=== PATIENT | male | born 1990 | race African-American/Black ===

== ENCOUNTER 2021-10-29 13:03 | Inpatient (IN) | payer SELFPAY ==
[~2021-10-29] VITALS: Ht 180.3 cm; Wt 81.7 kg
[2021-10-29 13:03] VITALS: BP 125/91
--- NOTE | 2021-10-29 13:03 | NUR ---
29 y/o male biba, homeless, pt presents to ed with restless/yelling behavior and aloc. pt was found at store swinging a machete per pd. pt is currently aggressive with spastic movements and confused. alert and awake, but pt is refusing to answer questions at this time. pt currently on 4 point hard restraints for safety to pt and others. pmh: unable to obtain allergy: unable to obtain med: unable to obtain
--- NOTE | 2021-10-29 13:08 | NUR ---
PT BIBA TO BED 06.
[2021-10-29] MEDS ORDERED: NACL 0.9% 1,000 ML IV ONE ×2 (13:25→15:50)
[2021-10-29] MEDS ORDERED: LORazepam 2 MG/ML VIAL IM STA (13:52)
[2021-10-29] MEDS ORDERED: diphenhydrAMINE 50 MG/ML VIAL IM ONE (13:55)
[2021-10-29] MEDS ORDERED: HALOPERIDOL IM 5 MG/ML VIAL IM ONE (13:55)
[2021-10-29 14:19] LABS: ALBUMIN 3.3 g/dL (3.4-5.0); ANION GAP 16.7 (8-16); CHLORIDE 108 mmol/L (98-107); CREATININE 0.8 mg/dL (0.6-1.3); GFR ARICAN-AMERICAN 148 mL/min (>90); GLUCOSE 103 mg/dL (74-106); POTASSIUM 3.7 mmol/L (3.5-5.1); SODIUM SERUM 145 mmol/L (136-145); TOTAL BILIRUBIN 0.5 mg/dL (0.0-1.0); UREA NITROGEN, BLOOD 15 mg/dL (7-18)
--- NOTE | 2021-10-29 14:37 | NUR ---
Patient pulled out IV.
--- NOTE | 2021-10-29 14:50 | NUR ---
29 y/o male biba from streets altered. Per EMS, patient was altered and "swinging a machete at store," PD was on scene. Patient is not answering any questions. Patient possibly took an unknown substance. Medical History: Unobtainable ALLERGY: Unobtainable
[2021-10-29 15:12] LABS: SALICYLATE < 2.8 mg/dL (2.8-20.0)
[2021-10-29 15:13] LABS: ACETAMINOPHEN < 0.5 ug/ml (10-30)
[2021-10-29 15:29] LABS: ASPARTATE AMINOTRANSFERASE 229 U/L (15-37)
[2021-10-29 16:46] LABS: BASOPHILS # (AUTO) 0.1 K/uL (0.00-0.22); BASOPHILS % (AUTO) 0.7 % (0.0-2.0); EOSINOPHILS % (AUTO) 0.6 % (0.0-4.0); HEMATOCRIT 41.4 % (36-52); LYMPHOCYTES # (AUTO) 2.1 K/uL (2.0-11.5); MEAN CORPUSCULAR HEMOGLOBIN 30 pg (27-31); MEAN CORPUSCULAR HGB CONC 34 g/dL (33-37); MEAN CORPUSCULAR VOLUME 90.1 fL (80-94); MONOCYTES # (AUTO) 0.8 K/uL (0.8-1.0); MONOCYTES % (AUTO) 10.3 % (1.7-9.3); NEUTROPHILS # (AUTO) 5.1 K/uL (1.8-7.7); NEUTROPHILS % (AUTO) 62.4 % (42.2-75.2); PLATELET COUNT (AUTO) 320 K/uL (140-450); WHITE BLOOD COUNT (AUTO) 8.2 K/uL (4.8-10.8)
--- NOTE | 2021-10-29 16:56 | NUR ---
Obtained ANABELLE specimen obtained, walked to lab. Handed to CPT Katie.
--- NOTE | 2021-10-29 19:15 | NUR ---
Report given to DEEPAK Babcock for transfer of care.
--- NOTE | 2021-10-29 20:00 | NUR ---
pt more alert, able to state his name is Semaj Cabrales. Pt able to follow commands. Restraints removed, pt contracted for safety. Pt given food and juice. Tolerated well.
[2021-10-29 20:29] LABS: APPEARANCE,URINE CLEAR (CLEAR); BILIRUBIN,URINE NEGATIVE (NEGATIVE); BLOOD, URINE NEGATIVE (NEGATIVE); COLOR,URINE BROWN (YELLOW); LEUKOCYTE ESTERASE ,URINE NEGATIVE (NEGATIVE); NITRITE, URINE NEGATIVE (NEGATIVE); UGLUCOSE NEGATIVE (NEGATIVE)
[2021-10-29 20:30] VITALS: BP 117/76
--- NOTE | 2021-10-29 20:30 | NUR ---
GET THE REPORT FROM CHARGE NURSE LUCERO, PATIENT IS LYING ON BED, PATIENT IS ALERT ORIENTED X1, ALL FALL PRECAUTION MEASURE ARE IN PLACE, CALL LIGHT IS WITHIN THE REACH, WILL CONTINUE TO MONITOR PATIENT.
--- NOTE | 2021-10-29 20:35 | NUR ---
pt taken to med surg floor for admission, report given to Rhett SOTELO. VSS, NAD
[2021-10-29] MEDS: NACL 0.9% 1,000 ML IV SCH (21:29)
[2021-10-29] MEDS ORDERED: HALOPERIDOL IM 5 MG/ML VIAL IM PRN (21:55)
[2021-10-29] MEDS ORDERED: ONDANSETRON 4 MG/2 ML VIAL IM/IVP PRN (21:55)
[2021-10-29] MEDS ORDERED: ACETAMINOPHEN 325 MG TAB PO PRN (21:55)
[2021-10-29] MEDS ORDERED: ZOLPIDEM 5 MG TAB PO PRN (21:55)
[2021-10-29] MEDS ORDERED: guaiFENesin DM 200/20 MG-10 ML 10 ML UDC PO PRN (21:55)
[2021-10-29] MEDS ORDERED: DOCUSATE SODIUM 100 MG GELCAP PO PRN (21:55)
[2021-10-29] MEDS ORDERED: POTASSIUM CHLORIDE 10 MEQ TABER PO PRN (21:55)
[2021-10-29] MEDS ORDERED: HYDROcodone/APAP 7.5/325 MG 1 TAB PO PRN (21:55)
[2021-10-29 22:16] LABS: BARBITURATE, URINE NEGATIVE ng/ml (NEG <=200); BENZODIAZEPINE, URINE POSITIVE ng/mL (NEG <=200); CANNABINOID, URINE NEGATIVE ng/mL (NEG <=50); COCAINE, URINE NEGATIVE ng/mL (NEG <=300); OPIATE, URINE NEGATIVE ng/mL (NEG <=2000); PHENCYCLIDINE SCREEN,URINE NEGATIVE ng/mL (NEG <=25)
[2021-10-29 22:27] LABS: PHOSPHORUS 3.3 mg/dL (2.5-4.9); THYROID STIMULATING HORMONE 1.46 uIU/mL (0.34-3.74)
[2021-10-29 22:28] LABS: PROTHROMBIN TIME 10.1 secs (10.8-13.4)
--- NOTE | 2021-10-29 22:41 | NUR ---
PATIENT IS LYING ON BED, NO ANY COMPLAIN OF PAIN OR SHORTNESS OF BREATH NOTED AT THIS TIME, VITAL SIGN IS WITHIN THE NORMAL RANGE, ALL SCHEDULE MEDICATION IDS GIVEN PER DOCTOR ORDER, CALL LIGHT IS WITHIN REACH, WILL CONTINUE TO MONITOR PATIENT.
--- NOTE | 2021-10-30 00:09 | NUR ---
PATIENT IS LYING ON BED, NO ANY COMPLAIN OF PAIN OR SHORTNESS OF BREATH AT THIS TIME, CALL LIGHT IS WITHIN THE REACH, WILL CONTINUE TO MONITOR PATIENT.
[2021-10-30 04:00] VITALS: BP 145/86
[2021-10-30] MEDS: NACL 0.9% 1,000 ML IV SCH ×2 (05:18→16:00)
--- NOTE | 2021-10-30 06:02 | NUR ---
PATIENT IS LYING ON BED, NO ANY COMPLAIN OF PAIN OR SHORTNESS OF BREATH AT THIS TIME, VITAL SIGN IS WITHIN THE NORMAL RANGE, CALL LIGHT IS WITHIN THE REACH, WILL CONTINUE TO MONITOR PATIENT.
[2021-10-30 06:51] LABS: ANION GAP 13.4 (8-16); BASOPHILS % (AUTO) 0.5 % (0.0-2.0); CARBON DIOXIDE 24.8 mmol/L (21-32); CREATININE 0.8 mg/dL (0.6-1.3); EOSINOPHILS # (AUTO) 0.2 K/uL (0-0.4); HEMATOCRIT 37.7 % (36-52); HEMOGLOBIN 12.7 g/dL (12.0-18.0); LYMPHOCYTES # (AUTO) 1.3 K/uL (2.0-11.5); LYMPHOCYTES % (AUTO) 22.8 % (20.5-51.1); MEAN CORPUSCULAR HEMOGLOBIN 30 pg (27-31); MEAN CORPUSCULAR HGB CONC 34 g/dL (33-37); MEAN CORPUSCULAR VOLUME 90.3 fL (80-94); MONOCYTES # (AUTO) 0.7 K/uL (0.8-1.0); MONOCYTES % (AUTO) 12.7 % (1.7-9.3); NEUTROPHILS # (AUTO) 3.6 K/uL (1.8-7.7); PLATELET COUNT (AUTO) 284 K/uL (140-450); POTASSIUM 4.2 mmol/L (3.5-5.1); RED BLOOD CELL COUNT(AUTO) 4.18 MIL/uL (4.20-6.10); RED CELL DISTRIBUTION WIDTH 14.2 % (11.6-13.7); WHITE BLOOD COUNT (AUTO) 5.9 K/uL (4.8-10.8)
--- NOTE | 2021-10-30 07:06 | NUR ---
GAVE THE REPORT TO MORNING NURSE SONIA FOR CONTINUOS OF CARE, PATIENT IS STABLE.
[2021-10-30 08:00] VITALS: BP 104/62
[2021-10-30] MEDS: PANTOPRAZOLE 40 MG TABEC PO SCH (08:30)
[2021-10-30] MEDS: OLANZapine 5 MG TAB PO SCH ×2 (14:15→20:53)
[2021-10-30 16:58] VITALS: BP 100/63
--- NOTE | 2021-10-30 18:14 | NUR ---
0730 Pt. sleeping, vss, no distress noted, call light in reach 1000 Pt. refusing to have ivf, made aware, pt. is eating well and drinking fluids, Na is wnl. Face Time done with Psychiatrist, Dr. Real, pt. very closed off, did not answer questions. Pt. to be started on Zyprexa 5mg po bid. Pt. refused lab draw at this time 1200 Pt. with no distress, call light in reach 1800 pt. needs met this shift, vss, no distress, takes meds as needed. Call light in reach.
--- NOTE | 2021-10-30 20:00 | NUR ---
OPENING NITE PATIENT IS LYING ON BED, PATIENT IS ALERT ORIENTED X3. PT ON R/A WITH SAT'S @ 98%. PT ABLE TO AMBULATE TO B/R. PT CONTINUES TO REFUSE THE IVF AND MD IS AWARE. PT DENIES ANY PAIN ONLY REQUESTING MORE SNACKS. ALL SAFETY PRECAUTION MEASURE ARE IN PLACE, CALL LIGHT IS WITHIN THE REACH, WILL CONTINUE TO MONITOR PATIENT.
[2021-10-30 20:27] LABS: ALBUMIN 2.7 g/dL (3.4-5.0); ANION GAP 11.7 (8-16); BILIRUBIN,DIRECT 0.1 mg/dL (0.0-0.3); CARBON DIOXIDE 27.3 mmol/L (21-32); CREATININE 0.8 mg/dL (0.6-1.3); PHOSPHORUS 3.5 mg/dL (2.5-4.9); TOTAL BILIRUBIN 0.3 mg/dL (0.0-1.0)
--- NOTE | 2021-10-31 | NUR ---
ROUNDS PATIENT IS LYING IN BED AWAKE AT THIS TIME. NO COMPLAIN OF PAIN OR SHORTNESS OF BREATH NOTED AT THIS TIME, VITAL SIGN IS WITHIN THE NORMAL RANGE, CALL LIGHT IS WITHIN REACH, WILL CONTINUE TO MONITOR PATIENT.
[2021-10-31] MEDS: NACL 0.9% 1,000 ML IV SCH ×2 (02:00→12:53)
[2021-10-31 04:00] VITALS: BP 114/89
[2021-10-31 07:13] LABS: BASOPHILS % (AUTO) 0.4 % (0.0-2.0); EOSINOPHILS # (AUTO) 0.1 K/uL (0-0.4); EOSINOPHILS % (AUTO) 3.1 % (0.0-4.0); HEMATOCRIT 38.8 % (36-52); LYMPHOCYTES # (AUTO) 1.9 K/uL (2.0-11.5); LYMPHOCYTES % (AUTO) 41.3 % (20.5-51.1); MEAN CORPUSCULAR HEMOGLOBIN 30 pg (27-31); MEAN CORPUSCULAR HGB CONC 34 g/dL (33-37); MEAN CORPUSCULAR VOLUME 89.5 fL (80-94); MONOCYTES # (AUTO) 0.5 K/uL (0.8-1.0); MONOCYTES % (AUTO) 10.6 % (1.7-9.3); NEUTROPHILS # (AUTO) 2.1 K/uL (1.8-7.7); NEUTROPHILS % (AUTO) 44.6 % (42.2-75.2); PLATELET COUNT (AUTO) 283 K/uL (140-450); RED BLOOD CELL COUNT(AUTO) 4.33 MIL/uL (4.20-6.10); WHITE BLOOD COUNT (AUTO) 4.6 K/uL (4.8-10.8)
[2021-10-31 07:19] LABS: CARBON DIOXIDE 24.9 mmol/L (21-32); CREATININE 0.7 mg/dL (0.6-1.3); POTASSIUM 3.9 mmol/L (3.5-5.1)
[2021-10-31 08:00] VITALS: BP 117/76
--- NOTE | 2021-10-31 09:24 | NUR ---
PATIENT HAS BEEN SCREENED AND CATEGORIZED LOW NUTRITION RISK. PATIENT WILL BE SEEN WITHIN 7 DAYS OF ADMISSION. 11/05/[address] REVIEWED BY BESSY FAN RD
[2021-10-31] MEDS: PANTOPRAZOLE 40 MG TABEC PO SCH (09:45)
[2021-10-31] MEDS: OLANZapine 5 MG TAB PO SCH (09:45)
[2021-10-31] MEDS ORDERED: OLAN5TAB65 PO (10:05)
[2021-10-31 13:53] VITALS: BP 117/76
--- NOTE | 2021-10-31 14:51 | NUR ---
DISCHARGE PATIENT IN STABLE CONDITION ACCORDING TO PCP ORDER. DISCHARGE CONSENT SIGNED, IV ACCESS & WRIST BAND REMOVED, [employer] SANDWICH PACKAGE GIVEN, UBER CALLED. PATIENT WHEEL OUT THE FACILITY WITH NOT ACUTE DISTRESS NOTED
== END 2021-10-31 14:40 | disposition home or self-care (01) | DRG 558 ==
LOC: MED 13:03 → MMU 20:03 → EDBD 20:03 → MTU 20:23
PROVIDERS: ADMIT Student in an Organized Health Care Education/Training Program; ATTEND Student in an Organized Health Care Education/Training Program
DX: M62.82 Rhabdomyolysis (principal); F23 Brief psychotic disorder; E44.1 Mild protein-calorie malnutrition; Z20.822 Contact with and (suspected) exposure to COVID-19; E83.51 Hypocalcemia; R74.01 Elevation of levels of liver transaminase levels; F15.10 Other stimulant abuse, uncomplicated; E86.0 Dehydration; Z68.25 Body mass index [BMI] 25.0-25.9, adult
CPT/HCPCS: 36415; 70450; 71045; 80048; 80053; 80076; 80305; 81003; 82040; 82150; 82435; 82550; 82553; 82565; 82947; 83036; 83690; 83735; 83880; 84100; 84132; 84295; 84443; 84484; 84520; 85025; 85610; 85730; 87081; 93005; 96360; 96372; 99285; G0480; G0482; J1200; J1630; J2060